=== PATIENT | female | born 1990 | race Two or more races ===

== ENCOUNTER 2023-04-07 14:09 | Emergency (ER) | payer SELFPAY ==
[~2023-04-07] VITALS: Ht 162.6 cm; Wt 55.5 kg
[2023-04-07 14:36] VITALS: TEMP 97.8
[2023-04-07 15:29] VITALS: BP 107/73; PULSE 74; RESP 16; O2SAT 99
== END 2023-04-07 23:03 | disposition left against medical advice (07) ==
LOC: ER 14:10
DX: Z76.0 Encounter for issue of repeat prescription (principal); Z53.21 Procedure and treatment not carried out due to patient leaving prior to being seen by health care provider
CPT/HCPCS: 99281

== ENCOUNTER 2023-04-15 14:26 | Emergency (ER) | payer MEDICAID ==
[~2023-04-15] VITALS: Ht 154.9 cm; Wt 57.5 kg
[2023-04-15 16:40] VITALS: BP 109/71; PULSE 82; RESP 18; TEMP 97.9; O2SAT 99
== END 2023-04-15 16:46 | disposition home or self-care (01) ==
LOC: ER 14:26
DX: S93.601A Unspecified sprain of right foot, initial encounter (principal); X58.XXXA Exposure to other specified factors, initial encounter; Y93.89 Activity, other specified; Y92.89 Other specified places as the place of occurrence of the external cause; Y99.8 Other external cause status
CPT/HCPCS: 73630; 99284

== ENCOUNTER 2023-04-17 15:14 | Emergency (ER) | payer MEDICAID ==
[~2023-04-17] VITALS: Ht 154.9 cm; Wt 56.2 kg
[2023-04-17 16:19] LABS: URINE HCG NEGATIVE (NEG)
[2023-04-17 16:23] LABS: BILIRUBIN,URINE NEGATIVE (Neg); COLOR,URINE YELLOW (Yellow); GLUCOSE, URINE NEGATIVE (Neg); KETONES,URINE NEGATIVE (Neg); LEUKOCYTE ESTERASE ,URINE NEGATIVE (Neg); NITRITES, URINE NEGATIVE (Neg); OCCULT BLOOD,URINE NEGATIVE (Neg); PROTEIN,URINE NEGATIVE (Neg); UROBILINOGEN,URINE 0.2 E.U/dL (0.2-1.0)
[2023-04-17 16:25] LABS: URINE AMPHETAMINE SCREEN NEGATIVE (Neg); URINE BARBITUATE SCREEN NEGATIVE (Neg); URINE BENZODIAZEPINES SCREEN NEGATIVE (Neg); URINE CANNABINOID SCREEN NEGATIVE (Neg); URINE COCAINE SCREEN NEGATIVE (Neg); URINE METHADONE SCREEN NEGATIVE (Neg); URINE OPIATE SCREEN NEGATIVE (Neg); URINE PHENCYCLIDINE SCREEN NEGATIVE (Neg)
[2023-04-17 16:33] LABS: CLARITY,URINE SLIGHTLY CLOUDY (Clear); UA COLLECTION TYPE CLN CATCH MIDSTREAM; WBC,URINE 0-4 /HPF (0-4)
[2023-04-17 16:34] LABS: BACTERIA,URINE NONE SEEN /HPF (Neg); MUCUS STRANDS MODERATE /LPF (Neg); RBC,URINE 0-2 /HPF (0-2); SQUAMOUS EPITHELIAL CELL,UR MODERATE /LPF (FEW)
--- NOTE | 2023-04-17 16:45 | NUR ---
Pt. arrived ambulating with staff.
[2023-04-17 17:00] LABS: BASOPHILS % (AUTO) 0.6 % (0-1); EOSINOPHILS # (AUTO) 0.1 X10'3 (0-0.9); EOSINOPHILS % (AUTO) 1.8 % (0-6); HEMOGLOBIN 12.2 g/dl (12.0-16.0); LYMPHOCYTES # (AUTO) 2.2 X10'3 (1.1-4.8); LYMPHOCYTES % (AUTO) 38.1 % (21-51); MEAN CORPUSCULAR HEMOGLOBIN 33.5 PG (27.0-31.0); MEAN CORPUSCULAR VOLUME 101.8 FL (78-98); MEAN PLATELET VOLUME 7.6 FL (7.4-10.4); MONOCYTES # (AUTO) 0.6 X10'3 (0-0.9); MONOCYTES % (AUTO) 9.9 % (2-12); NEUTROPHILS # (AUTO) 2.9 X10'3 (1.8-7.7); NEUTROPHILS % (AUTO) 49.6 % (42-75); PLATELET COUNT 227 X10'3 (140-440); RED BLOOD COUNT 3.64 X10'6 (4.20-5.60); RED CELL DISTRIBUTION WIDTH 14.6 % (11.5-14.5); WHITE BLOOD COUNT 5.8 X10'3 (4.5-11.0)
[2023-04-17 17:15] LABS: ALANINE AMINOTRANSFERASE 17 U/L (12-78); ALBUMIN 3.5 G/DL (3.4-5.0); ALBUMIN/GLOBULIN RATIO 0.9 (1.1-1.5); ALKALINE PHOSPHATASE 65 IU/L (46-116); ANION GAP 7 (8-16); ASPARTATE AMINO TRANSFERASE 15 U/L (10-37); BILIRUBIN,TOTAL 0.1 MG/DL (0.1-1.0); BLOOD UREA NITROGEN 18 MG/DL (7-18); BUN/CREATININE RATIO 32.1 (10.0-20.0); CALCIUM 8.9 MG/DL (8.5-10.1); CHLORIDE 105 MMOL/L (99-107); CREATININE 0.56 MG/DL (0.40-0.90); GLUCOSE 83 MG/DL (70-104); POTASSIUM 4.1 MMOL/L (3.5-5.1); SODIUM 140 MMOL/L (135-145); TOTAL CARBON DIOXIDE 27.6 MMOL/L (24-32); TOTAL PROTEIN 7.4 G/DL (6.4-8.2); eCRCL 108 ML/MIN; eGFR > 90 ML/MIN
[2023-04-17 17:24] LABS: ETHANOL < 10 MG/DL (<10); THYROID STIMULATING HORMONE 2.51 ulU/ml (0.34-4.50)
--- NOTE | 2023-04-17 18:26 | NUR ---
TC FROM [facility] AND SPOKE WITH VIRGIE WILKINSON (STAFF MEMBER). CONTACT NUMBER .
[2023-04-17 22:55] VITALS: BP 119/60; PULSE 103; RESP 16; TEMP 98; O2SAT 99
== END 2023-04-17 21:00 | disposition home or self-care (01) ==
LOC: ER 15:15
DX: R45.851 Suicidal ideations (principal); Z20.822 Contact with and (suspected) exposure to COVID-19; F31.9 Bipolar disorder, unspecified; Z88.5 Allergy status to narcotic agent; Z88.8 Allergy status to other drugs, medicaments and biological substances
CPT/HCPCS: 36415; 80053; 80305; 80320; 81001; 81025; 84443; 85025; 87811; 99285

== ENCOUNTER 2023-05-01 07:59 | Emergency (ER) | payer OTHER ==
[~2023-05-01] VITALS: Ht 154.9 cm; Wt 59.8 kg
[2023-05-01 08:05] VITALS: BP 111/73; PULSE 92; TEMP 98.1; O2SAT 98
[2023-05-01 08:36] LABS: URINE HCG NEGATIVE (NEG)
[2023-05-01 08:43] LABS: BILIRUBIN,URINE NEGATIVE (Neg); CLARITY,URINE SLIGHTLY CLOUDY (Clear); COLOR,URINE YELLOW (Yellow); GLUCOSE, URINE NEGATIVE (Neg); KETONES,URINE NEGATIVE (Neg); LEUKOCYTE ESTERASE ,URINE NEGATIVE (Neg); NITRITES, URINE NEGATIVE (Neg); OCCULT BLOOD,URINE NEGATIVE (Neg); PROTEIN,URINE NEGATIVE (Neg); UROBILINOGEN,URINE 0.2 E.U/dL (0.2-1.0)
[2023-05-01 08:45] LABS: BASOPHILS % (AUTO) 0.5 % (0-1); EOSINOPHILS # (AUTO) 0.2 X10'3 (0-0.9); HEMATOCRIT 36.1 % (35.0-45.0); LYMPHOCYTES # (AUTO) 1.9 X10'3 (1.1-4.8); LYMPHOCYTES % (AUTO) 38.1 % (21-51); MEAN CORPUSCULAR HEMOGLOBIN 33.1 PG (27.0-31.0); MEAN CORPUSCULAR HGB CONC 33.3 g/dL (33.0-36.5); MEAN CORPUSCULAR VOLUME 99.4 FL (78-98); MEAN PLATELET VOLUME 7.3 FL (7.4-10.4); MONOCYTES # (AUTO) 0.3 X10'3 (0-0.9); MONOCYTES % (AUTO) 6.9 % (2-12); NEUTROPHILS # (AUTO) 2.5 X10'3 (1.8-7.7); NEUTROPHILS % (AUTO) 50.5 % (42-75); PLATELET COUNT 228 X10'3 (140-440); RED BLOOD COUNT 3.63 X10'6 (4.20-5.60); RED CELL DISTRIBUTION WIDTH 13.8 % (11.5-14.5)
[2023-05-01 08:49] LABS: BACTERIA,URINE FEW /HPF (Neg); MUCUS STRANDS NONE SEEN /LPF (Neg); RBC,URINE NONE SEEN /HPF (0-2); SQUAMOUS EPITHELIAL CELL,UR MODERATE /LPF (FEW); UA COLLECTION TYPE CLN CATCH MIDSTREAM; WBC,URINE 0-4 /HPF (0-4)
[2023-05-01 08:56] LABS: URINE AMPHETAMINE SCREEN NEGATIVE (Neg); URINE BARBITUATE SCREEN NEGATIVE (Neg); URINE BENZODIAZEPINES SCREEN NEGATIVE (Neg); URINE CANNABINOID SCREEN NEGATIVE (Neg); URINE COCAINE SCREEN NEGATIVE (Neg); URINE METHADONE SCREEN NEGATIVE (Neg); URINE OPIATE SCREEN NEGATIVE (Neg); URINE PHENCYCLIDINE SCREEN NEGATIVE (Neg)
[2023-05-01 08:59] LABS: ALANINE AMINOTRANSFERASE 26 U/L (12-78); ALBUMIN 3.5 G/DL (3.4-5.0); ALBUMIN/GLOBULIN RATIO 0.9 (1.1-1.5); ALKALINE PHOSPHATASE 93 IU/L (46-116); ANION GAP 8 (8-16); ASPARTATE AMINO TRANSFERASE 20 U/L (10-37); BILIRUBIN,TOTAL 0.2 MG/DL (0.1-1.0); BLOOD UREA NITROGEN 17 MG/DL (7-18); BUN/CREATININE RATIO 25.4 (10.0-20.0); CALCIUM 9.1 MG/DL (8.5-10.1); CHLORIDE 104 MMOL/L (99-107); CREATININE 0.67 MG/DL (0.40-0.90); GLUCOSE 79 MG/DL (70-104); POTASSIUM 4.4 MMOL/L (3.5-5.1); SODIUM 138 MMOL/L (135-145); TOTAL CARBON DIOXIDE 26.3 MMOL/L (24-32); TOTAL PROTEIN 7.4 G/DL (6.4-8.2); eCRCL 90 ML/MIN; eGFR > 90 ML/MIN
[2023-05-01 09:09] LABS: ETHANOL < 10 MG/DL (<10); THYROID STIMULATING HORMONE 2.21 ulU/ml (0.34-4.50)
--- NOTE | 2023-05-01 09:37 | NUR ---
Patient awake and alert c/o suicidal ideation x 2 weeks. Patient has a HX of depression and previous suicide attempt. Patient states her suicidal plan is to cut herself. Patient also c/o sore throat no fever. Patient is at [facility]. Espinoza is the contact.
[2023-05-01 09:46] VITALS: RESP 16
--- NOTE | 2023-05-01 10:17 | NUR ---
Packet sent to [facility].
--- NOTE | 2023-05-01 11:29 | NUR ---
Patient laying in bed. RN gave patient warm blankets. No distress observed. Patient pending eval by [facility]. Continue to monitor.
--- NOTE | 2023-05-01 12:07 | NUR ---
Patient eating lunch. No distress observed. Patient awaiting [facility] eval. Continue to monitor.
--- NOTE | 2023-05-01 13:11 | NUR ---
Julieta GERARD, evaluating patient. No distress observed. Continue ot monitor.
--- NOTE | 2023-05-01 15:03 | NUR ---
RN called [facility] and spoke to Casandra who will picker tender patient around [id number]. Patient is being released and has a safety plan. Patient is aware and is getting dressed. No distress observed. Continue to monitor.
== END 2023-05-01 15:44 ==
LOC: ER 07:59
DX: R45.851 Suicidal ideations (principal); Z20.822 Contact with and (suspected) exposure to COVID-19; F31.9 Bipolar disorder, unspecified; Z88.5 Allergy status to narcotic agent; Z88.8 Allergy status to other drugs, medicaments and biological substances; Z79.899 Other long term (current) drug therapy
CPT/HCPCS: 36415; 80053; 80305; 80320; 81001; 81025; 84443; 85025; 87811; 99285

== ENCOUNTER 2023-06-04 11:09 | Emergency (ER) | payer OTHER ==
[~2023-06-04] VITALS: Ht 154.9 cm; Wt 63.8 kg
[2023-06-04 11:20] VITALS: TEMP 98.8
[2023-06-04] MEDS ORDERED: albuterol 2.5 MG/3 ML nebule NEB ONE (11:20)
[2023-06-04 11:41] VITALS: PULSE 89; RESP 18; O2SAT 97
[2023-06-04 11:47] VITALS: PULSE 102; RESP 16; O2SAT 100
[2023-06-04] MEDS ORDERED: ALBU18HF2 INH (12:03)
[2023-06-04] MEDS ORDERED: PRED20TA PO (12:03)
[2023-06-04 12:29] VITALS: BP 91/62; PULSE 88; RESP 16; O2SAT 98
== END 2023-06-04 12:30 | disposition home or self-care (01) ==
LOC: ER 11:09
DX: J45.901 Unspecified asthma with (acute) exacerbation (principal); Z20.822 Contact with and (suspected) exposure to COVID-19; F31.9 Bipolar disorder, unspecified; J45.909 Unspecified asthma, uncomplicated; Z88.5 Allergy status to narcotic agent; Z88.8 Allergy status to other drugs, medicaments and biological substances
CPT/HCPCS: 36415; 71045; 87502; 87503; 87811; 94640; 94760; 99284

== ENCOUNTER 2023-06-10 14:09 | Emergency (ER) | payer OTHER ==
[~2023-06-10] VITALS: Ht 154.9 cm; Wt 65.9 kg
[~2023-06-10 14:09] MED LIST: ALBU18HF2 INH; PRED20TA PO
[2023-06-10] MEDS ORDERED: predniSONE 20 mg tablet PO ONE (16:05)
[2023-06-10] MEDS ORDERED: ipratropium/albuterol 3ml nebule NEB ONE (16:05)
[2023-06-10] MEDS ORDERED: NEBU1KIT17 (16:23)
[2023-06-10] MEDS ORDERED: ALB0.5UD IH (16:23)
[2023-06-10] MEDS ORDERED: PRED10TA23 PO (16:23)
[2023-06-10 16:43] VITALS: PULSE 98; RESP 20; O2SAT 99
[2023-06-10 16:48] VITALS: PULSE 96; RESP 20; O2SAT 100
[2023-06-10 17:12] VITALS: BP 101/66; PULSE 95; RESP 16; TEMP 98.4; O2SAT 99
[2023-06-11] MEDS ORDERED: NEBU1KIT17 (17:26)
== END 2023-06-10 17:15 | disposition home or self-care (01) ==
LOC: ER 14:09
DX: J45.901 Unspecified asthma with (acute) exacerbation (principal); Z79.899 Other long term (current) drug therapy; Z88.8 Allergy status to other drugs, medicaments and biological substances; Z88.1 Allergy status to other antibiotic agents
CPT/HCPCS: 71045; 94640; 99283; J7512; 94760

== ENCOUNTER 2023-07-09 07:47 | Emergency (ER) | payer MEDICAID, OTHER ==
[~2023-07-09] VITALS: Ht 154.9 cm; Wt 68.4 kg
[~2023-07-09 07:47] MED LIST changes: +ALB0.5UD IH; +NEBU1KIT17; +PRED10TA23 PO; -PRED20TA PO
[2023-07-09] MEDS ORDERED: TRAM50TA2 PO (11:47)
[2023-07-09] MEDS ORDERED: traMADol 50MG tablet PO ONE (11:55)
[2023-07-09 12:46] VITALS: BP 108/78; PULSE 89; RESP 17; TEMP 98; O2SAT 97
== END 2023-07-09 12:49 | disposition home or self-care (01) ==
LOC: ER 07:48
DX: S52.122A Displaced fracture of head of left radius, initial encounter for closed fracture (principal); J45.909 Unspecified asthma, uncomplicated; F31.9 Bipolar disorder, unspecified; Z88.5 Allergy status to narcotic agent; Z88.8 Allergy status to other drugs, medicaments and biological substances; Z79.899 Other long term (current) drug therapy; W19.XXXA Unspecified fall, initial encounter; Y93.89 Activity, other specified; Y92.89 Other specified places as the place of occurrence of the external cause; Y99.8 Other external cause status
CPT/HCPCS: 73030; 73090; 73110; 99284; A4565

== ENCOUNTER 2023-07-14 08:00 | Emergency (ER) | payer MEDICAID ==
[~2023-07-14] VITALS: Ht 154.9 cm; Wt 69.8 kg
[~2023-07-14 08:00] MED LIST changes: -ALB0.5UD IH; -PRED10TA23 PO; +TRAM50TA2 PO
[2023-07-14 08:20] VITALS: BP 109/63; PULSE 105; RESP 16; TEMP 99.5; O2SAT 98
[2023-07-14] MEDS ORDERED: ALBU8HFA PO (09:50)
[2023-07-14] MEDS ORDERED: NAPR-56 PO (09:50)
== END 2023-07-14 10:08 | disposition home or self-care (01) ==
LOC: ER 08:00
DX: M79.602 Pain in left arm (principal); Z76.0 Encounter for issue of repeat prescription; R50.9 Fever, unspecified; R11.2 Nausea with vomiting, unspecified; J45.909 Unspecified asthma, uncomplicated; F41.9 Anxiety disorder, unspecified; F32.A Depression, unspecified; Z88.8 Allergy status to other drugs, medicaments and biological substances; Z79.899 Other long term (current) drug therapy
CPT/HCPCS: 99281

== ENCOUNTER 2023-08-01 14:30 | Inpatient (IN) | payer MEDICAID ==
[2023-08-01] VITALS (10 sets, daily range): PULSE 92–125; RESP 18–22; TEMP 98.5; O2SAT 22–100
[~2023-08-01] VITALS: Ht 154.9 cm; Wt 71.1 kg
[~2023-08-01 14:30] MED LIST changes: +ALBU8HFA PO; +NAPR-56 PO
[2023-08-01] MEDS: ipratropium/albuterol 3ml nebule NEB STA (14:47)
[2023-08-01] MEDS: albuterol 2.5 MG/3 ML nebule CONTNEB PRN (14:48)
[2023-08-01] MEDS: predniSONE 20 mg tablet PO ONE (14:59)
[2023-08-01] MEDS ORDERED: PRED20TA PO (15:41)
[2023-08-01] MEDS ORDERED: ADV50100 INH (15:41)
[2023-08-01] MEDS ORDERED: ALBU6.7H14 INH (15:41)
[2023-08-01] MEDS ORDERED: ALB0.5UD NEB (15:41)
[2023-08-01] MEDS ORDERED: albuterol 2.5 MG/3 ML nebule CONTNEB PRN (17:10)
[2023-08-01 19:03] LABS: EOSINOPHILS # (AUTO) 0.2 X10'3 (0-0.9); MONOCYTES # (AUTO) 0.2 X10'3 (0-0.9)
[2023-08-01 19:06] LABS: BASOPHILS % (AUTO) 0.4 % (0-1); HEMATOCRIT 35.4 % (35.0-45.0); HEMOGLOBIN 11.9 g/dl (12.0-16.0); LYMPHOCYTES # (AUTO) 0.8 X10'3 (1.1-4.8); LYMPHOCYTES % (AUTO) 9.2 % (21-51); MEAN CORPUSCULAR HEMOGLOBIN 31.3 PG (27.0-31.0); MEAN CORPUSCULAR HGB CONC 33.6 g/dL (33.0-36.5); MEAN CORPUSCULAR VOLUME 93.1 FL (78-98); MEAN PLATELET VOLUME 8.7 FL (7.4-10.4); MONOCYTES % (AUTO) 2.3 % (2-12); NEUTROPHILS # (AUTO) 7.4 X10'3 (1.8-7.7); NEUTROPHILS % (AUTO) 86.1 % (42-75); PLATELET COUNT 158 X10'3 (140-440); RED CELL DISTRIBUTION WIDTH 15.6 % (11.5-14.5); WHITE BLOOD COUNT 8.5 X10'3 (4.5-11.0)
[2023-08-01 19:13] LABS: ALBUMIN 3.5 G/DL (3.4-5.0); ANION GAP 14 (8-16); BLOOD UREA NITROGEN 20 MG/DL (7-18); CALCIUM 8.1 MG/DL (8.5-10.1); CHLORIDE 108 MMOL/L (99-107); CREATININE 0.69 MG/DL (0.40-0.90); GLUCOSE 127 MG/DL (70-104); POTASSIUM 3.8 MMOL/L (3.5-5.1); SODIUM 144 MMOL/L (135-145); TOTAL CARBON DIOXIDE 22.1 MMOL/L (24-32); eCRCL 87 ML/MIN; eGFR > 90 ML/MIN
[2023-08-01] MEDS: normal saline 1000ML IV soln IVB ONE (19:34)
[2023-08-01] MEDS ORDERED: magnesium hydroxide 30ml (MOM) UD suspension PO PRN (20:40)
[2023-08-01] MEDS ORDERED: magnesium Cl slow-release 64mg tablet PO PRN (20:40)
[2023-08-01] MEDS ORDERED: ondansetron/PF 4mg/2ml inj IV PRN (20:40)
[2023-08-01] MEDS ORDERED: potassium Cl 20 mEq SR tablet PO PRN ×2 (20:40)
[2023-08-01] MEDS ORDERED: potassium Cl 40MEQ/1/2NS 520ml 520 ML IV PRN (20:40)
[2023-08-01] MEDS ORDERED: mag hydrox/Alum hydrox/simeth 30ml oral suspension PO PRN (20:40)
[2023-08-01] MEDS ORDERED: magnesium 2GM in 50ml NS 50 ML IV PRN (20:40)
[2023-08-01] MEDS ORDERED: acetaminophen 325mg tablet PO PRN (20:40)
[2023-08-01] MEDS ORDERED: magnesium 4gm in 100ml NS 100 ML IV PRN (20:40)
[2023-08-01] MEDS ORDERED: LEVE500T PO (21:58)
[2023-08-01] MEDS ORDERED: ESCI5TAB17 PO (21:58)
[2023-08-01] MEDS ORDERED: DIVA-76 PO (21:58)
[2023-08-01] MEDS: albuterol 2.5 MG/3 ML nebule NEB PRN (22:12)
[2023-08-02] VITALS (10 sets, daily range): BP systolic 107; BP diastolic 62; PULSE 99–114; RESP 16–20; O2SAT 93–96
[2023-08-02 03:37] LABS: BASOPHILS % (AUTO) 0.4 % (0-1); EOSINOPHILS % (AUTO) 0.2 % (0-6); HEMATOCRIT 30.5 % (35.0-45.0); HEMOGLOBIN 10.1 g/dl (12.0-16.0); LYMPHOCYTES % (AUTO) 12.6 % (21-51); MEAN CORPUSCULAR HGB CONC 33.3 g/dL (33.0-36.5); MEAN CORPUSCULAR VOLUME 93.1 FL (78-98); MEAN PLATELET VOLUME 8.6 FL (7.4-10.4); MONOCYTES # (AUTO) 0.4 X10'3 (0-0.9); MONOCYTES % (AUTO) 5.5 % (2-12); NEUTROPHILS # (AUTO) 6.3 X10'3 (1.8-7.7); NEUTROPHILS % (AUTO) 81.3 % (42-75); PLATELET COUNT 174 X10'3 (140-440); RED BLOOD COUNT 3.28 X10'6 (4.20-5.60); RED CELL DISTRIBUTION WIDTH 15.5 % (11.5-14.5); WHITE BLOOD COUNT 7.8 X10'3 (4.5-11.0)
[2023-08-02 04:05] LABS: ALANINE AMINOTRANSFERASE 14 U/L (12-78); ALBUMIN 2.9 G/DL (3.4-5.0); ALKALINE PHOSPHATASE 59 IU/L (46-116); ANION GAP 10 (8-16); ASPARTATE AMINO TRANSFERASE 11 U/L (10-37); BILIRUBIN,TOTAL 0.2 MG/DL (0.1-1.0); BLOOD UREA NITROGEN 14 MG/DL (7-18); BUN/CREATININE RATIO 26.4 (10.0-20.0); CALCIUM 7.8 MG/DL (8.5-10.1); CHLORIDE 109 MMOL/L (99-107); CREATININE 0.53 MG/DL (0.40-0.90); GLUCOSE 126 MG/DL (70-104); MAGNESIUM 1.7 MG/DL (1.5-2.4); POTASSIUM 4.2 MMOL/L (3.5-5.1); SODIUM 141 MMOL/L (135-145); TOTAL CARBON DIOXIDE 22.5 MMOL/L (24-32); TOTAL PROTEIN 5.8 G/DL (6.4-8.2); eCRCL 113 ML/MIN; eGFR > 90 ML/MIN
[2023-08-02 05:42] LABS: ALANINE AMINOTRANSFERASE 13 U/L (12-78); ALBUMIN 2.8 G/DL (3.4-5.0); ALKALINE PHOSPHATASE 57 IU/L (46-116); ANION GAP 9 (8-16); ASPARTATE AMINO TRANSFERASE 10 U/L (10-37); BILIRUBIN,TOTAL 0.1 MG/DL (0.1-1.0); BLOOD UREA NITROGEN 14 MG/DL (7-18); BUN/CREATININE RATIO 28.6 (10.0-20.0); CALCIUM 7.9 MG/DL (8.5-10.1); CHLORIDE 112 MMOL/L (99-107); CREATININE 0.49 MG/DL (0.40-0.90); GLUCOSE 103 MG/DL (70-104); POTASSIUM 4.1 MMOL/L (3.5-5.1); SODIUM 144 MMOL/L (135-145); TOTAL CARBON DIOXIDE 22.9 MMOL/L (24-32); TOTAL PROTEIN 5.7 G/DL (6.4-8.2); eCRCL 122 ML/MIN; eGFR > 90 ML/MIN
[2023-08-02 05:47] LABS: BASOPHILS % (AUTO) 0.2 % (0-1); EOSINOPHILS % (AUTO) 0.6 % (0-6); HEMATOCRIT 31.6 % (35.0-45.0); HEMOGLOBIN 10.5 g/dl (12.0-16.0); LYMPHOCYTES # (AUTO) 1.4 X10'3 (1.1-4.8); LYMPHOCYTES % (AUTO) 17.8 % (21-51); MEAN CORPUSCULAR HEMOGLOBIN 31.1 PG (27.0-31.0); MEAN CORPUSCULAR HGB CONC 33.4 g/dL (33.0-36.5); MEAN CORPUSCULAR VOLUME 93.3 FL (78-98); MEAN PLATELET VOLUME 8.2 FL (7.4-10.4); MONOCYTES # (AUTO) 0.7 X10'3 (0-0.9); MONOCYTES % (AUTO) 9.2 % (2-12); NEUTROPHILS # (AUTO) 5.6 X10'3 (1.8-7.7); NEUTROPHILS % (AUTO) 72.2 % (42-75); PLATELET COUNT 152 X10'3 (140-440); RED BLOOD COUNT 3.38 X10'6 (4.20-5.60); RED CELL DISTRIBUTION WIDTH 15.8 % (11.5-14.5); WHITE BLOOD COUNT 7.7 X10'3 (4.5-11.0)
[2023-08-02] MEDS: K and/or MAG REPLACEMENT MC SCH (08:00)
[2023-08-02] MEDS: albuterol 2.5 MG/3 ML nebule NEB PRN (08:37)
[2023-08-02] MEDS: docusate sod 100mg capsule PO SCH (09:15)
[2023-08-02] MEDS: predniSONE 20 mg tablet PO SCH (09:15)
[2023-08-02] MEDS: heparin, porcine 5000 units/ml vial SQ SCH (09:16)
[2023-08-02] MEDS: ipratropium/albuterol 3ml nebule NEB SCH (11:04)
[2023-08-02] MEDS: methylPREDNISolone sod succ 125mg/2ml vial IV ONE (11:13)
[2023-08-02] MEDS: methylPREDNISolone sod succ/PF 40mg inj. IV SCH (13:02)
[2023-08-02] MEDS ORDERED: DOXY-224 PO (15:02)
[2023-08-02] MEDS ORDERED: ADV50100 INH (15:02)
[2023-08-02] MEDS ORDERED: PRED20TA PO (15:02)
[2023-08-02] MEDS ORDERED: DOXYCYCLINE 100MG CAPSULE PO SCH (20:00)
[2023-08-02] MEDS ORDERED: budesonide 0.5mg/2ml UD nebule IH SCH (20:00)
[2023-08-03] MEDS ORDERED: levetiracetam 250mg tablet PO SCH (08:00)
[2023-08-03] MEDS ORDERED: divalproex sodium 500mg tablet.DR PO SCH (08:00)
[2023-08-03] MEDS ORDERED: ESCITALOPRAM OXALATE 5 MG TABLET PO SCH (08:00)
== END 2023-08-02 17:21 | disposition home or self-care (01) | DRG 141 ==
LOC: ER 14:31 → ED HOLD 20:57
PROVIDERS: ADMIT Internal Medicine; ATTEND Family Medicine
DX: J45.51 Severe persistent asthma with (acute) exacerbation (principal); F31.9 Bipolar disorder, unspecified; G40.909 Epilepsy, unspecified, not intractable, without status epilepticus; J06.9 Acute upper respiratory infection, unspecified; F41.9 Anxiety disorder, unspecified; J44.9 Chronic obstructive pulmonary disease, unspecified; S52.122A Displaced fracture of head of left radius, initial encounter for closed fracture; X58.XXXA Exposure to other specified factors, initial encounter; Z20.822 Contact with and (suspected) exposure to COVID-19; Y93.89 Activity, other specified; Y92.89 Other specified places as the place of occurrence of the external cause; Y99.8 Other external cause status; Z59.00 Homelessness unspecified; Z88.5 Allergy status to narcotic agent; Z88.8 Allergy status to other drugs, medicaments and biological substances; Z88.3 Allergy status to other anti-infective agents; Z87.891 Personal history of nicotine dependence; Z79.899 Other long term (current) drug therapy
CPT/HCPCS: 36415; 71045; 73070; 80048; 80053; 83735; 85025; 87811; 94010; 94640; 94760; 99285; A7015; G0378; J1644; J2920; J2930; J7030; J7512

== ENCOUNTER 2023-09-10 08:29 | Emergency (ER) | payer MEDICAID ==
[~2023-09-10] VITALS: Ht 154.9 cm; Wt 71.6 kg
[~2023-09-10 08:29] MED LIST changes: +ADV50100 INH; +ALBU6.7H14 INH; -ALBU8HFA PO; +DIVA-76 PO; +DOXY-224 PO; +ESCI5TAB17 PO; +LEVE500T PO; -NAPR-56 PO; +PRED20TA PO; -TRAM50TA2 PO
[2023-09-10 08:35] VITALS: BP 116/63; PULSE 73; RESP 16; O2SAT 100
[2023-09-10] MEDS ORDERED: DIVA500T2 PO (09:10)
[2023-09-10 09:26] VITALS: TEMP 98
== END 2023-09-10 09:42 | disposition home or self-care (01) ==
LOC: ER 08:29
DX: R56.9 Unspecified convulsions (principal); Z76.0 Encounter for issue of repeat prescription; Z88.5 Allergy status to narcotic agent; Z88.8 Allergy status to other drugs, medicaments and biological substances; Z79.899 Other long term (current) drug therapy; Z79.52 Long term (current) use of systemic steroids
CPT/HCPCS: 99281

== ENCOUNTER 2023-09-30 18:48 | Emergency (ER) | payer MEDICAID ==
[~2023-09-30] VITALS: Ht 154.9 cm; Wt 73.2 kg
[~2023-09-30 18:48] MED LIST changes: +DIVA500T2 PO
[2023-09-30 18:55] VITALS: BP 114/72; PULSE 87; RESP 14; TEMP 97.8; O2SAT 99
[2023-09-30] MEDS ORDERED: PRED20TA PO (19:03)
[2023-09-30] MEDS: dexamethasone sod phosphate 10mg/ml inj IM STA (19:27)
== END 2023-09-30 19:34 | disposition home or self-care (01) ==
LOC: ER 18:48
DX: M54.17 Radiculopathy, lumbosacral region (principal); J45.909 Unspecified asthma, uncomplicated; F31.9 Bipolar disorder, unspecified; Z88.5 Allergy status to narcotic agent; Z88.8 Allergy status to other drugs, medicaments and biological substances; Z79.899 Other long term (current) drug therapy; Z79.2 Long term (current) use of antibiotics; Z79.1 Long term (current) use of non-steroidal anti-inflammatories (NSAID)
CPT/HCPCS: 96372; 99283; J1100

== ENCOUNTER 2023-10-21 08:25 | Outpatient (CLI) | payer MEDICAID ==
[~2023-10-21] VITALS: Ht 185.4 cm; Wt 73.9 kg
[2023-10-21 08:58] VITALS: PULSE 66; RESP 16; O2SAT 99
[2023-10-21] MEDS: albuterol 2.5 MG/3 ML nebule NEB ONE (09:15)
[2023-10-22] MEDS ORDERED: ONDA8TAB13 PO (10:33)
== END 2023-10-21 23:59 | disposition home or self-care (01) ==
LOC: RT 08:25
PROVIDERS: ATTEND Nurse Practitioner Family
DX: J45.20 Mild intermittent asthma, uncomplicated (principal)
CPT/HCPCS: 94060; 94760

== ENCOUNTER 2023-10-22 08:22 | Emergency (ER) | payer MEDICAID ==
[~2023-10-22] VITALS: Ht 157.5 cm; Wt 70.0 kg
[2023-10-22] MEDS: ondansetron 4mg rapidly disintigrating tab PO ONE (10:11)
[2023-10-22] MEDS ORDERED: ONDA8TAB13 PO (10:33)
[2023-10-22 10:38] VITALS: BP 105/63; PULSE 74; RESP 17; TEMP 97.9; O2SAT 99
== END 2023-10-22 10:39 | disposition home or self-care (01) ==
LOC: ER 08:23
DX: R11.2 Nausea with vomiting, unspecified (principal); J45.909 Unspecified asthma, uncomplicated; Z88.5 Allergy status to narcotic agent; Z88.8 Allergy status to other drugs, medicaments and biological substances; Z79.899 Other long term (current) drug therapy; Z79.2 Long term (current) use of antibiotics
CPT/HCPCS: 99283

== ENCOUNTER 2023-11-26 16:37 | Emergency (ER) | payer MEDICAID ==
[~2023-11-26] VITALS: Ht 154.9 cm; Wt 73.2 kg
[~2023-11-26 16:37] MED LIST changes: +ONDA8TAB13 PO
[2023-11-26 16:40] VITALS: BP 112/66; PULSE 85; TEMP 97.9; O2SAT 100
[2023-11-26] MEDS ORDERED: LIDO700A32 TOP (18:25)
[2023-11-26] MEDS ORDERED: ketorolac trometh. 30mg/ml inj. IM ONE (18:25)
[2023-11-26] MEDS ORDERED: CYCL-1 PO (18:25)
[2023-11-26] MEDS ORDERED: PRED20TA PO (18:25)
[2023-11-26] MEDS: dexamethasone sod phosphate 10mg/ml inj IM STA (18:46)
[2023-11-26] MEDS: cyclobenzaprine 10mg tablet PO ONE (18:46)
[2023-11-26 18:47] VITALS: RESP 16
[2023-11-26] MEDS: ketorolac tromethamine 15mg/ml inj. IM ONE (18:47)
== END 2023-11-26 18:54 | disposition home or self-care (01) ==
LOC: ER 16:37
DX: M25.552 Pain in left hip (principal); M54.32 Sciatica, left side; J45.909 Unspecified asthma, uncomplicated; F31.9 Bipolar disorder, unspecified; Z88.5 Allergy status to narcotic agent; Z88.8 Allergy status to other drugs, medicaments and biological substances; Z79.899 Other long term (current) drug therapy
CPT/HCPCS: 73502; 96372; 99284; J1100; J1885

== ENCOUNTER 2024-03-24 12:29 | Emergency (ER) | payer MEDICAID ==
[~2024-03-24] VITALS: Ht 154.9 cm; Wt 70.5 kg
[~2024-03-24 12:29] MED LIST changes: +CYCL-1 PO; +LIDO700A32 TOP; +ONDA-245 PO; -ONDA8TAB13 PO
[2024-03-24 12:30] VITALS: BP 122/78; PULSE 94; TEMP 97.2; O2SAT 99
[2024-03-24 14:28] VITALS: RESP 16
[2024-03-24] MEDS: ketorolac trometh 30MG/ML vial 30 MG/ML VIAL IM STA (14:28)
== END 2024-03-24 14:32 | disposition home or self-care (01) ==
LOC: ER 12:29
DX: M54.50 Low back pain, unspecified (principal); M25.552 Pain in left hip; J45.909 Unspecified asthma, uncomplicated; F41.9 Anxiety disorder, unspecified; F32.A Depression, unspecified; Z88.1 Allergy status to other antibiotic agents; Z88.5 Allergy status to narcotic agent; Z88.8 Allergy status to other drugs, medicaments and biological substances; Z79.52 Long term (current) use of systemic steroids; Z79.899 Other long term (current) drug therapy
CPT/HCPCS: 96372; 99284; J1885

== ENCOUNTER 2024-05-08 13:07 | Emergency (ER) | payer MEDICAID ==
[~2024-05-08] VITALS: Ht 154.9 cm; Wt 72.0 kg
[2024-05-08 13:17] VITALS: BP 112/60; PULSE 93; RESP 16; O2SAT 99
[2024-05-08] MEDS: diphenhydrAMINE 25mg capsule PO ONE (14:31)
[2024-05-08 14:33] VITALS: TEMP 97.4
== END 2024-05-08 14:34 | disposition home or self-care (01) ==
LOC: ER 13:08
DX: T78.49XA Other allergy, initial encounter (principal); F31.9 Bipolar disorder, unspecified; J45.909 Unspecified asthma, uncomplicated; Z88.5 Allergy status to narcotic agent; Z88.8 Allergy status to other drugs, medicaments and biological substances; Z79.899 Other long term (current) drug therapy; X58.XXXA Exposure to other specified factors, initial encounter
CPT/HCPCS: 99282; Q0163